=== PATIENT | female | born 1990 ===

== ENCOUNTER 2018-08-11 12:40 | Outpatient (CLI) | payer OTHER | END 2018-08-11 13:00 | disposition home or self-care (01) | LOC: OFIC 805 12:40 | DX: H91.90 Unspecified hearing loss, unspecified ear (principal); H93.13 Tinnitus, bilateral ==

== ENCOUNTER 2018-08-11 13:42 | Outpatient (CLI) | payer OTHER | END 2018-08-11 14:00 | disposition home or self-care (01) | LOC: LAB 13:42 | DX: H61.91 Disorder of right external ear, unspecified (principal) ==

== ENCOUNTER 2018-08-25 12:03 | Outpatient (CLI) | payer OTHER ==
[~2018-08-25] VITALS: Ht 152.4 cm; Wt 41.7 kg
== END 2018-08-25 12:20 | disposition home or self-care (01) ==
LOC: OFIC 805 12:03
DX: H91.90 Unspecified hearing loss, unspecified ear (principal); H93.13 Tinnitus, bilateral; H61.23 Impacted cerumen, bilateral

== ENCOUNTER 2018-10-13 15:37 | Outpatient (CLI) | payer OTHER ==
[~2018-10-13] VITALS: Ht 152.4 cm; Wt 41.7 kg
== END 2018-10-13 16:00 | disposition home or self-care (01) ==
LOC: OFIC 805 15:37
DX: H60.8X3 Other otitis externa, bilateral (principal); H93.13 Tinnitus, bilateral; H61.23 Impacted cerumen, bilateral